=== PATIENT | male | born 1965 | race Caucasian/White ===

== ENCOUNTER 2021-06-06 00:32 | Observation (INO) | payer OTHER ==
[~2021-06-06] VITALS: Ht 172.7 cm; Wt 78.9 kg
[2021-06-06 01:04] LABS: RED BLOOD COUNT 5.45 M/UL (4.20-5.50); WHITE BLOOD COUNT 13.1 K/UL (4.5-11.0)
[2021-06-06 01:21] LABS: BUN/CREATININE RATIO 15 (0-10)
[2021-06-06] MEDS ORDERED: HYDROCODON-ACE1 EAC2 PO (05:32)
[2021-06-06] MEDS ORDERED: LIPITOR10 MG PO (05:32)
[2021-06-06 14:29] LABS: ADENOVIRUS F 40/41 Not Detected (Negative); ASTROVIRUS Not Detected (Negative); CAMPYLOBACTER Not Detected (Negative); CRYPTOSPORIDIUM Not Detected (Negative); E.COLI 0157 Not Detected (Negative); ENTAMOEBA HISTOLYTICA Not Detected (Negative); ENTEROAGGREGATIVE E.COLI (EAEC Not Detected (Negative); ENTEROPATHOGENIC E.COLI (EPEC) Not Detected (Negative); ENTEROTOXIGENIC E.COLI (ETEC) Not Detected (Negative); GIARDIA LAMBLIA Not Detected (Negative); NOROVIRUS GI/GII Not Detected (Negative); PLESIOMONAS SHIGELLOIDES Not Detected (Negative); ROTOVIRUS A Not Detected (Negative); SALMONELLA Not Detected (Negative); SAPOVIRUS Not Detected (Negative); SHIG/ENTEROINVAS.ECOLI (EIEC) Not Detected (Negative); SHIGA-LIK TOX.PRO.E.COLI (STEC Not Detected (Negative); VIBRIO Not Detected (Negative); VIBRIO CHOLERAE Not Detected (Negative); YERSINIA ENTEROCOLITICA Not Detected (Negative)
[2021-06-06 16:36] LABS: CLOSTRIDIUM DIFFICILE TOX A/B DETECTED (Negative)
[2021-06-07] MEDS ORDERED: VANCOCIN 125 M125 MG PO (12:23)
== END 2021-06-07 13:30 | disposition home or self-care (01) ==
LOC: ER1 00:32 → CDU 03:31 → MED SURG 4 05:30
PROVIDERS: Emergency Medicine; ADMIT Surgery
DX: K50.00 Crohn's disease of small intestine without complications (principal); R18.8 Other ascites; Z79.899 Other long term (current) drug therapy; Z20.822 Contact with and (suspected) exposure to COVID-19
CPT/HCPCS: 80053; 83605; 83690; 85025; 85652; 86140; 87324; 87449; 87507; 96374; 96375; 96376; 99285; G0378; J1885; J2270; J2405; J7030; Q9967; U0002